=== PATIENT | female | born 1980 ===

== ENCOUNTER → 2018-12-29 | Day surgery (SDC) | payer OTHER ==
[~2018-12-29] MED LIST: Glycopyrrolate 0.2 MG/ML SDV ONE; Morphine PF 10 MG/10 ML SDV ONE; Ondansetron 4 MG/2 ML SDV ONE; Oxytocin 10 Units/1 ML SDV ONE; Phenylephrine/Normal Saline 100 MCG/ML 10 ML Syringe ONE; Sodium Chloride 0.9% 20 ML ONE; ceFAZolin 1 GM Vial ONE; ePHEDrine 50 MG/ML SDV ONE
== END ==
LOC: MW.LAB 14:13 → MW.SDS 14:13 → MW.NPGPWH 14:13 → EDSTATUS 14:17
PROVIDERS: ATTEND Obstetrics & Gynecology
DX: O34.212 Maternal care for vertical scar from previous cesarean delivery (principal)
CPT/HCPCS: 36415; 85027; 86850; 86900; 86901

== ENCOUNTER 2018-12-31 07:54 | Inpatient (IN) | payer OTHER ==
[2018-12-31] MEDS ORDERED: Sodium Chloride 0.9% 10 ML SDV IV PRN (08:02)
[2018-12-31] MEDS ORDERED: ceFAZolin 2 GM in Premix Bag 1 BAG IV ONE (08:02)
[2018-12-31] MEDS ORDERED: Citric Acid/Sodium Citrate Solution 30 ML Cup PO ONE (08:02)
[2018-12-31] MEDS ORDERED: Sodium Chloride 0.9% 10 ML Syringe FLUSH PRN (08:02)
[2018-12-31] MEDS ORDERED: Sodium Chloride 0.9% 2.5 ML Syringe FLUSH PRN (08:02)
[2018-12-31] MEDS ORDERED: Lactated Ringers 1,000 ML IV SCH ×2 (08:15→11:15)
[2018-12-31] MEDS ORDERED: Oxytocin/0.9 % Sodium Chloride 30 UNIT/500 ML BAG IV SCH (08:15)
--- NOTE | 2018-12-31 08:55 | PCM.PREANE ---
Preanesthetic Assessment - Anesthesia/Transfusion/Family Hx Anesthesia History: Prior Anesthesia Without Reaction Family History of Anesthesia Reaction: No Transfusion History: No Prior Transfusion(s) - Review of Systems General: No Symptoms Pulmonary: No Symptoms Cardiovascular: No Symptoms Gastrointestinal: No Symptoms Neurological: No Symptoms Other: Reports: None - Physical Assessment NPO Status Date: 12/30/18 NPO Status Time: 23:00 Height: 5 ft 4 in Weight: 85.275 kg ASA Class: 2 Mental Status: Alert & Oriented x3 Airway Class: Mallampati = 2 Dentition: Reports: Normal Dentition Thyro-Mental Finger Breadths: 3 Mouth Opening Finger Breadths: 3 ROM/Head Extension: Full Lungs: Clear to Auscultation, Normal Respiratory Effort Cardiovascular: Regular Rate, Regular Rhythm - Allergies Allergies/Adverse Reactions: Allergies Allergy/AdvReac Type Severity Reaction Status Date / Time latex Allergy Rash Verified 12/31/18 08:00 Penicillins Allergy Rash Verified 12/31/18 08:00 - Anesthesia Plan Free Text/Narrative:: Fetus with known renal agenesis. Parents desire palliative care at delivery only. - Acknowledgements Anesthesia Type Planned: Spinal Pt an Appropriate Candidate for the Planned Anesthesia: Yes Alternatives and Risks of Anesthesia Discussed w Pt/Guardian: Yes Pt/Guardian Understands and Agrees with Anesthesia Plan: Yes PreAnesthesia Questionnaire HEENT History: Reports: Other (See Below) Other HEENT History: wears glasses Cardiovascular History: Reports: Other (See Below) Other Cardiovascular History: "had elevated BP for short while after my daughter was born, otherwise my BP in low" Respiratory History: Reports: None Gastrointestinal History: Reports: Other (See Below) Other Gastrointestinal History: occasional heartburn with Genitourinary History: Reports: None PLANT AND MACHINERY VALUER History: Reports: , Spontaneous : 4 Para: 1 LMP (Approximate): Musculoskeletal History: Reports: Fracture Other Musculoskeletal History: fx arm as a child Neurological History: Reports: None Psychiatric History: Reports: None Endocrine/Metabolic History: Reports: Obesity/BMI 30+ Hematologic History: Reports: None Immunologic History: Reports: None Oncologic (Cancer) History: Reports: None Dermatologic History: Reports: None - Past Surgical History Head Surgeries/Procedures: Reports: None HEENT Surgical History: Reports: Adenoidectomy, Tonsillectomy Cardiovascular Surgical History: Reports: None Respiratory Surgical History: Reports: None GI Surgical History: Reports: None Female Surgical History: Reports: Section, D&C Endocrine Surgical History: Reports: None Neurological Surgical History: Reports: None Musculoskeletal Surgical History: Reports: None Oncologic Surgical History: Reports: None Dermatological Surgical History: Reports: None - SUBSTANCE USE Smoking Status *Q: Former Smoker Recreational Drug Use History: No - HOME MEDS Home Medications: Home Meds Loratadine [Claritin] 10 mg PO DAILY 12/30/18 [History] Magnesium Oxide [Magnesium] 400 mg PO DAILY 12/30/18 [History] - CURRENT (IN HOUSE) MEDS Current Meds: Current Medications Lactated Ringer's (Ringers, Lactated) 1,000 mls @ 500 mls/hr IV BOLUS YOLANDA Last Admin: 12/31/18 08:30 Dose: 500 mls/hr Oxytocin/Sodium Chloride (Oxytocin 30 Unit/500 Ml-Ns) 30 unit in 500 mls @ 250 mls/hr IV TITRATE YOLANDA Sodium Chloride (Saline Flush) 10 ml FLUSH ASDIRECTED PRN PRN Reason: Keep Vein Open Sodium Chloride (Saline Flush) 2.5 ml FLUSH ASDIRECTED PRN PRN Reason: Keep Vein Open Sodium Chloride (Normal Saline) 10 ml IV ASDIRECTED PRN PRN Reason: IV Use Discontinued Medications Citric Acid/Sodium Citrate (Bicitra Solution) 30 ml PO ONETIME ONE Stop: 12/31/18 08:03 Cefazolin Sodium/Dextrose 2 gm (/ Premix) 50 mls @ 100 mls/hr IV ONETIME ONE Stop: 12/31/18 08:31
[2018-12-31] MEDS ORDERED: Morphine 2 MG/ML Syringe ONE (09:09)
[2018-12-31] MEDS ORDERED: Octyl 2-Cyanoacrylate 1 Tube ONE (09:48)
--- NOTE | 2018-12-31 11:01 | PCM.OPNOTE ---
- General Post-Op/Procedure Note Date of Surgery/Procedure: 12/31/18 Operative Procedure(s): repeat low transverse Findings: Liveborn male, comfort care provided, normal Pre Op Diagnosis: 33 weeks, anhidramnios, renal agenesis, non-reassuring testing, previous Post-Op Diagnosis: Same Anesthesia Technique: Spinal Primary Surgeon: Kasia Gaona Secondary Surgeon: Virginia Bullock Anesthesia Provider: Dre Seay Pathology: section of cord for microarray analysis Fluid Replacement, Intraop: 1,000 EBL in mLs: 200 Complications: None Known Condition: Good
[2018-12-31] MEDS ORDERED: Ibuprofen 800 MG Tab PO PRN (11:03)
[2018-12-31] MEDS ORDERED: Ondansetron 4 MG/2 ML SDV IVPUSH PRN (11:03)
[2018-12-31] MEDS ORDERED: Acetaminophen/oxyCODONE 325-5 MG Tab PO PRN ×2 (11:03)
[2018-12-31] MEDS ORDERED: Bisacodyl 10 MG Supp RECTAL PRN (11:03)
[2018-12-31] MEDS ORDERED: Lanolin 100% Cream 7 GM Tube TOP PRN (11:03)
[2018-12-31] MEDS ORDERED: diphenhydrAMINE 50 MG/ML SDV IVPUSH PRN ×2 (11:03→15:44)
[2018-12-31] MEDS: Ketorolac 30 MG/ML SDV IVPUSH SCH ×3 (11:42→23:28)
--- NOTE | 2018-12-31 12:02 | OR ---
SURGEON: Kasia Gaona M.D. DATE OF PROCEDURE: 12/31/2018 PREOPERATIVE DIAGNOSES: 1. A 33-week intrauterine . 2. renal agenesis with anhydramnios. 3. Prior section. 4. Non-reassuring status. POSTOPERATIVE DIAGNOSES: 1. A 33-week intrauterine . 2. renal agenesis with anhydramnios. 3. Prior section. 4. Non-reassuring status. PROCEDURE: Repeat low-transverse section. PRIMARY SURGEON: Kasia Gaona MD. ANESTHESIA: Spinal. ESTIMATED BLOOD LOSS: 200 mL. FLUIDS: 1000 mL of crystalloid. FINDINGS: Liveborn male. scores were not obtained and is getting comfort care. Normal-appearing uterus, tubes, and ovaries. Normal-appearing appendix. COMPLICATIONS: None known. DISPOSITION: Stable to recovery. BRIEF HISTORY: This is a 38-year-old female, G4, P 1-0-2-1. She presented at 33 weeks' gestation with a known history of renal agenesis of the fetus with anhydramnios. She is undergoing weekly testing. The testing at that time showed recurrent decelerations, episodes of absent end-diastolic flow, and of course anhydramnios and discussion was held. She has previously been thoroughly counseled regarding delivery plans. growth was also at the first percentile. Due to these issues, I discussed that the fetus may not survive another week in utero. She does desire to have a liveborn infant, so that she can spend some time with the , understanding that life will be very short, and she does desire to proceed with delivery at this time. She has had a prior and desires repeat. She has had planning sessions with pediatric staff, OB staff, Special Care, and Facilities And Grounds Director. Risks of surgery were discussed including bleeding; infection; injury to bowel, bladder, blood vessels or other organs; risk of thromboembolic event; and risk of anesthesia, and understanding all these risks, she does desire to proceed. DESCRIPTION OF PROCEDURE: With the patient in the left tilt position, under adequate spinal analgesia, the abdomen was prepped with chlorhexidine and draped in usual fashion for abdominal surgery. SCDs were in place, Christopher catheter had been placed, and she received 2 g of Ancef IV. After the abdomen was properly prepped and draped, the documentation of adequate analgesia was performed. The prior cicatrix was excised with a scalpel and removed and the subcutaneous tissue was incised transversely using a scalpel to the fascia, which was scored transversely in the midline. The fascial incision was extended laterally using curved Bullock scissors. The fascia was elevated from the underlying rectus muscle using sharp and blunt dissection. The rectus muscles were sharply in the midline and the peritoneum was entered sharply. A finger was placed into the peritoneal cavity. There were no adhesions. The incision was extended cephalad and caudad using blunt dissection and the Mao O retractor was placed. The visceroperitoneum of the lower uterine segment was incised and a transverse curvilinear incision was made with a scalpel over the lower uterine segment and then carefully elevating the last few layers as there was no fluid to enter the amniotic cavity with Metzenbaum scissors. Again, no fluid was noted. I was able to easily extend the incision with blunt dissection. The head was delivered via the uterine incision. The was a liveborn male. Prior to cutting the cord, there was good tone. The infant was cleaned and stimulated on the abdomen and then the cord was clamped and cut, and the was handed immediately to the parents for comfort care. A segment of the cord proximal to the fetus was collected for chromosomal microarray analysis plus the placenta was removed by manual extraction. The cervix was opened with ring forceps. The uterus was cleaned with a dry laparotomy tape. The uterine incision was closed with a running lock suture of 0 Polysorb followed by an imbricating layer of 0 Polysorb. The posterior cul-de-sac and pericolic gutters were cleaned with a wet laparotomy tape. Tubes and ovaries were inspected and were normal. The appendix was identified and was normal. The uterine incision was inspected, any areas of bleeding that were noted were cauterized or controlled with figure-of- eight sutures. The Mao O retractor was removed. The uterine incision was again inspected and remained hemostatic. The rectus muscle and peritoneum were loosely approximated in the midline using running mattress suture of 0 Polysorb. The posterior aspect of the fascia was inspected and was hemostatic. The fascial incision was closed with a running suture of 0 Polysorb. Subcutaneous tissue was irrigated, any areas of bleeding that were noted were cauterized. The skin was closed with a running subcuticular suture of 3-0 Monocryl followed by Dermabond. Final sponge, needle, and instrument counts were reported as correct. There were no known complications. Mother and infant are in LDR with the having comfort care and the mother in stable condition. MAGGY PLEITEZ /[id number]
[2018-12-31] MEDS ORDERED: Dexamethasone 10 MG/ML SDV IVPUSH ONE (12:22)
--- NOTE | 2018-12-31 13:46 | PCM.POSTAN ---
POST ANESTHESIA ASSESSMENT - MENTAL STATUS Mental Status: Alert, Oriented - VITAL SIGNS Pulse Rate: 80 SaO2: 88 Resp Rate: 12 - RESPIRATORY Respiratory Status: Respiratory Rate WNL, Airway Patent, O2 Saturation Stable - CARDIOVASCULAR CV Status: Pulse Rate WNL, Blood Pressure Stable - GASTROINTESTINAL GI Status: No Symptoms - PAIN Pain Score: 0 - POST OP HYDRATION Hydration Status: Adequate & Stable
[2018-12-31] MEDS ORDERED: Nalbuphine 10 MG/1 ML Vial IVPUSH PRN (15:44)
[2018-12-31] MEDS ORDERED: Naloxone 0.4 MG/ML Syringe IVPUSH PRN (15:44)
--- NOTE | 2018-12-31 16:40 | PCM.SN ---
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 [facility] 02/16/2018. Gestational age 33+2 weeks. assessment revealed has severe oligohydramnious, agenesis of kidneys b/l. After comprehensive meetings w/ ethics committe, discussion w/ lifeguard, ENVIRONMENTAL PROPERTY ASSESSOR, assessed to be non- viable and likely to pass shortly following . The parents have set forth a plan, approved by our hospital. Parent's wish to deliver via CS and subsequently to maximize time spent in close contact with the . They do not wish any invasive intervention for the . delivered with weak gasps, central cyanosis, poor muscle tone, poor resp effort. Morphine PO PRN available but no administered. examined again appr 1hr following and found to have very weak resp. effort, faint heart tones. Pulse ox showed HR 40, SaO2 58-59%. Parents request for the patient again to be assessed at appr 4pm. cyanotic, no resp. effort, no spontenous movement. no breath sounds or heart sounds on ascultation. Pulse ox failed to record or read heart rate or saturations. passed at 4:19pm recorded time.
[2018-12-31] MEDS ORDERED: Docusate Sodium 100 MG Cap PO SCH (21:00)
[2019-01-01] MEDS: Ketorolac 30 MG/ML SDV IVPUSH SCH ×2 (05:30→11:19)
--- NOTE | 2019-01-01 07:20 | PCM48HPAN ---
Post Anesthesia Note - EVALUATION WITHIN 48HRS OF ANESTHETIC Vital Signs in Normal Range: Yes Patient Participated in Evaluation: Yes Respiratory Function Stable: Yes Airway Patent: Yes Cardiovascular Function Stable: Yes Hydration Status Stable: Yes Pain Control Satisfactory: Yes Nausea and Vomiting Control Satisfactory: Yes Mental Status Recovered: Yes Pulse Rate: 88 SaO2: 100 Resp Rate: 15 Temperature: 97.6 F Blood Pressure: 103/59
--- NOTE | 2019-01-01 09:59 | PCM.PNPP ---
- General Info Date of Service: 01/01/19 Subjective Update: 38 yo P2 s/p repeat LTCS , POD1 , she denies any complains she is ambulating , voiding and tolerating regular diet Normal grief process ,but patient is doing very well emotionally . 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 She had some hours with the baby before he passed on. Functional Status: Reports: Pain Controlled, Tolerating Diet, Ambulating, Urinating - Review of Systems General: Reports: No Symptoms HEENT: Reports: No Symptoms Pulmonary: Reports: No Symptoms Cardiovascular: Reports: No Symptoms Gastrointestinal: Reports: No Symptoms Genitourinary: Reports: No Symptoms Musculoskeletal: Reports: No Symptoms Skin: Reports: No Symptoms Neurological: Reports: No Symptoms Psychiatric: Reports: No Symptoms - General Info Date of Service: 01/01/19 - Patient Data Vital Signs - Most Recent: Last Vital Signs Temp 36.6 C 01/01/19 09:00 Pulse 74 01/01/19 09:00 Resp 17 01/01/19 09:00 BP 98/55 L 01/01/19 09:00 Pulse Ox 98 01/01/19 09:00 Weight - Most Recent: 85.275 kg I&O - Last 24 Hours: Intake & Output 12/31/18 01/01/19 01/01/19 22:59 06:59 14:59 Intake Total 1000 Output Total 250 1450 700 Balance -250 -450 -700 Lab Results - Last 24 Hours: Laboratory Results - last 24 hr 01/01/19 Range/Units 05:39 Hgb 10.8 L (12.0-16.0) g/dL Hct 32.8 L (36.0-46.0) % Med Orders - Current: Current Medications Bisacodyl (Dulcolax) 10 mg RECTAL ONETIME PRN PRN Reason: Constipation Diphenhydramine HCl (Benadryl) 25 mg IVPUSH Q6H PRN PRN Reason: Itching or Nausea Diphenhydramine HCl (Benadryl) 25 mg IVPUSH Q4H PRN PRN Reason: Itching Stop: 01/01/19 15:45 Docusate Sodium (Colace) 100 mg PO BID YOLANDA Emollient Ointment (Lansinoh Hpa) 0 gm TOP ASDIRECTED PRN PRN Reason: Sore Nipples Lactated Ringer's (Ringers, Lactated) 1,000 mls @ 125 mls/hr IV ASDIRECTED [facility] Last Admin: 12/31/18 12:36 Dose: 125 mls/hr Ibuprofen (Motrin) 800 mg PO Q8H PRN PRN Reason: mild pain or fever Ketorolac Tromethamine (Toradol) 30 mg IVPUSH Q6H YOLANDA Stop: 01/01/19 11:16 Last Admin: 01/01/19 05:30 Dose: 30 mg Nalbuphine HCl (Nubain) 5 mg IVPUSH Q3H PRN PRN Reason: Pruritis Stop: 01/01/19 15:45 Naloxone HCl (Narcan) 0.1 mg IVPUSH ONETIME PRN PRN Reason: Respiratory Depression Stop: 01/01/19 15:45 Ondansetron HCl (Zofran) 4 mg IVPUSH Q4H PRN PRN Reason: Nausea/Vomiting Last Admin: 12/31/18 17:24 Dose: 4 mg Oxycodone/Acetaminophen (Percocet 325-5 Mg) 1 tab PO Q4H PRN PRN Reason: Pain (moderate 4-6) Oxycodone/Acetaminophen (Percocet 325-5 Mg) 2 tab PO Q4H PRN PRN Reason: Pain (moderate 4-6) Discontinued Medications Citric Acid/Sodium Citrate (Bicitra Solution) 30 ml PO ONETIME ONE Stop: 12/31/18 08:03 Dexamethasone (Dexamethasone) 10 mg IVPUSH ONETIME ONE Stop: 12/31/18 12:23 Last Admin: 12/31/18 12:44 Dose: 10 mg Cefazolin Sodium/Dextrose 2 gm (/ Premix) 50 mls @ 100 mls/hr IV ONETIME ONE Stop: 12/31/18 08:31 Lactated Ringer's (Ringers, Lactated) 1,000 mls @ 500 mls/hr IV BOLUS [facility] Last Admin: 12/31/18 08:30 Dose: 500 mls/hr Oxytocin/Sodium Chloride (Oxytocin 30 Unit/500 Ml-Ns) 30 unit in 500 mls @ 250 mls/hr IV TITRATE [facility] Morphine Sulfate (Morphine) Confirm Administered Dose 2 mg .ROUTE .STK-MED ONE Stop: 12/31/18 09:10 Octyl Cyanoacrylate (Dermabond Advance) Confirm Administered Dose 1 applic .ROUTE .Voucheres ONE Stop: 12/31/18 09:49 Sodium Chloride (Saline Flush) 10 ml FLUSH ASDIRECTED PRN PRN Reason: Keep Vein Open Sodium Chloride (Saline Flush) 2.5 ml FLUSH ASDIRECTED PRN PRN Reason: Keep Vein Open Sodium Chloride (Normal Saline) 10 ml IV ASDIRECTED PRN PRN Reason: IV Use - Interaction Support Person: - Recovery Exam Fundal Tone: Firm Fundal Level: At Umbilicus Fundal Placement: Midline Lochia Amount: Scant Lochia Color: Rubra/Red Perineum Description: Intact, Minimal Bruising/Swelling Episiotomy/Laceration: None Bladder Status: Indwelling Catheter in Place Urinary Elimination: Indwelling Catheter - Exam General: Alert, Oriented HEENT: Pupils Equal, Pupils Reactive Lungs: Clear to Auscultation Cardiovascular: Regular Rate, Regular Rhythm GI/Abdominal Exam: Normal Bowel Sounds Extremities: Normal Inspection Neurological: No New Focal Deficit Psy/Mental Status: Alert - Problem List & Annotations (1) delivery delivered SNOMED Code(s): 127565132 Code(s): O82 - ENCOUNTER FOR DELIVERY WITHOUT INDICATION Status: Acute Current Visit: Yes - Problem List Review Problem List Initiated/Reviewed/Updated: Yes - Assessment Assessment:: 38yo P2 s/p Repeat , POD1 , met all postoperative goals , 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 Good emotional support - Plan Plan:: Discharge home today
--- NOTE | 2019-01-01 10:02 | PCM.DCSUM1 ---
Discharge Summary - Hospital Course Brief History: 38yo P2 s/p Repeat , POD1 , met all postoperative goals , desires to go home. due to potter's sequence . Good emotional support - Discharge Data Discharge Date: 01/01/19 Discharge Disposition: Home, Self-Care 01 Condition: Good - Discharge Diagnosis/Problem(s) (1) delivery delivered SNOMED Code(s): 952026792 ICD Code: O82 - ENCOUNTER FOR DELIVERY WITHOUT INDICATION Status: Acute Current Visit: Yes - Patient Summary/Data Operative Procedure(s) Performed: repeat low transverse - Patient Instructions Diet: Usual Diet as Tolerated Activity: As Tolerated, No Lifting Over 20 Pounds Driving: May Drive Today Showering/Bathing: November Shower Wound/Incision Care: Keep Operative Site/Wound Site Clean and Dry Notify Provider of: Fever, Increased Pain, Swelling and Redness, Drainage - Discharge Plan *PRESCRIPTION DRUG MONITORING PROGRAM REVIEWED*: No *COPY OF PRESCRIPTION DRUG MONITORING REPORT IN PATIENT BELLA: No Prescriptions/Med Rec: Acetaminophen/oxyCODONE [Percocet 325-5 MG] 1 - 2 tab PO Q4H PRN 5 Days #20 tablet PRN Reason: Pain (Moderate 4-6) Ibuprofen [Motrin] 800 mg PO Q8H PRN 5 Days #30 tablet PRN Reason: mild pain or fever Home Medications: Home Meds Loratadine [Claritin] 10 mg PO DAILY 12/30/18 [History] Magnesium Oxide [Magnesium] 400 mg PO DAILY 12/30/18 [History] Acetaminophen/oxyCODONE [Percocet 325-5 MG] 1 - 2 tab PO Q4H PRN 5 Days #20 tablet 01/01/19 [Rx] Ibuprofen [Motrin] 800 mg PO Q8H PRN 5 Days #30 tablet 01/01/19 [Rx] - Discharge Summary/Plan Comment DC Time >30 min.: No - Patient Data Vitals - Most Recent: Last Vital Signs Temp 36.6 C 01/01/19 09:00 Pulse 74 01/01/19 09:00 Resp 17 01/01/19 09:00 BP 98/55 L 01/01/19 09:00 Pulse Ox 98 01/01/19 09:00 Weight - Most Recent: 85.275 kg I&O - Last 24 hours: Intake & Output 12/31/18 01/01/19 01/01/19 22:59 06:59 14:59 Intake Total 1000 Output Total 250 3090 700 Balance -250 -450 -700 Lab Results - Last 24 hrs: Laboratory Results - last 24 hr 01/01/19 Range/Units 05:39 Hgb 10.8 L (12.0-16.0) g/dL Hct 32.8 L (36.0-46.0) % Med Orders - Current: Current Medications Bisacodyl (Dulcolax) 10 mg RECTAL ONETIME PRN PRN Reason: Constipation Diphenhydramine HCl (Benadryl) 25 mg IVPUSH Q6H PRN PRN Reason: Itching or Nausea Diphenhydramine HCl (Benadryl) 25 mg IVPUSH Q4H PRN PRN Reason: Itching Stop: 01/01/19 15:45 Docusate Sodium (Colace) 100 mg PO BID [facility] Emollient Ointment (Lansinoh Hpa) 0 gm TOP ASDIRECTED PRN PRN Reason: Sore Nipples Lactated Ringer's (Ringers, Lactated) 1,000 mls @ 125 mls/hr IV ASDIRECTED YOLANDA Last Admin: 12/31/18 12:36 Dose: 125 mls/hr Ibuprofen (Motrin) 800 mg PO Q8H PRN PRN Reason: mild pain or fever Ketorolac Tromethamine (Toradol) 30 mg IVPUSH Q6H [facility] Stop: 01/01/19 11:16 Last Admin: 01/01/19 05:30 Dose: 30 mg Nalbuphine HCl (Nubain) 5 mg IVPUSH Q3H PRN PRN Reason: Pruritis Stop: 01/01/19 15:45 Naloxone HCl (Narcan) 0.1 mg IVPUSH ONETIME PRN PRN Reason: Respiratory Depression Stop: 01/01/19 15:45 Ondansetron HCl (Zofran) 4 mg IVPUSH Q4H PRN PRN Reason: Nausea/Vomiting Last Admin: 12/31/18 17:24 Dose: 4 mg Oxycodone/Acetaminophen (Percocet 325-5 Mg) 1 tab PO Q4H PRN PRN Reason: Pain (moderate 4-6) Oxycodone/Acetaminophen (Percocet 325-5 Mg) 2 tab PO Q4H PRN PRN Reason: Pain (moderate 4-6) Discontinued Medications Citric Acid/Sodium Citrate (Bicitra Solution) 30 ml PO ONETIME ONE Stop: 12/31/18 08:03 Dexamethasone (Dexamethasone) 10 mg IVPUSH ONETIME ONE Stop: 12/31/18 12:23 Last Admin: 12/31/18 12:44 Dose: 10 mg Cefazolin Sodium/Dextrose 2 gm (/ Premix) 50 mls @ 100 mls/hr IV ONETIME ONE Stop: 12/31/18 08:31 Lactated Ringer's (Ringers, Lactated) 1,000 mls @ 500 mls/hr IV BOLUS YOLANDA Last Admin: 12/31/18 08:30 Dose: 500 mls/hr Oxytocin/Sodium Chloride (Oxytocin 30 Unit/500 Ml-Ns) 30 unit in 500 mls @ 250 mls/hr IV TITRATE YOLANDA Morphine Sulfate (Morphine) Confirm Administered Dose 2 mg .ROUTE .STK-MED ONE Stop: 12/31/18 09:10 Octyl Cyanoacrylate (Dermabond Advance) Confirm Administered Dose 1 applic .ROUTE .STK-MED ONE Stop: 12/31/18 09:49 Sodium Chloride (Saline Flush) 10 ml FLUSH ASDIRECTED PRN PRN Reason: Keep Vein Open Sodium Chloride (Saline Flush) 2.5 ml FLUSH ASDIRECTED PRN PRN Reason: Keep Vein Open Sodium Chloride (Normal Saline) 10 ml IV ASDIRECTED PRN PRN Reason: IV Use
== END 2019-01-01 18:40 | disposition home or self-care (01) | DRG 787 ==
LOC: MW.OB 07:54
PROVIDERS: ADMIT Obstetrics & Gynecology; ATTEND Obstetrics & Gynecology
PROC: 10D00Z1 Extraction of Products of Conception, Low, Open Approach (ICD-10-PCS; principal; 2018-12-31)
DX: O34.211 Maternal care for low transverse scar from previous cesarean delivery (principal); O41.03X0 Oligohydramnios, third trimester, not applicable or unspecified; O76 Abnormality in fetal heart rate and rhythm complicating labor and delivery; O99.214 Obesity complicating childbirth; E66.9 Obesity, unspecified; O35.8XX0 Maternal care for other (suspected) fetal abnormality and damage, not applicable or unspecified; Z3A.33 33 weeks gestation of pregnancy; Q60.2 Renal agenesis, unspecified; Z37.0 Single live birth
CPT/HCPCS: 01961; 36415; 85014; 85018; 85027; A9270-GY; J1100; J1885; J2405; J7120